=== PATIENT | female | born 1995 | race Caucasian/White ===

== ENCOUNTER 2017-06-11 17:18 | Emergency (ER) | payer OTHER, SELFPAY ==
[2017-06-11 17:19] VITALS: BP 146/78; PULSE 87; RESP 14; TEMP 36.8; O2SAT 98; BMI 50.8
--- NOTE | 2017-06-11 17:59 | CT_ITS ---
STUDY: CT ABDOMEN AND PELVIS WITHOUT CONTRAST REASON FOR EXAM: Female, 21 years old. Back pain. Leukemia. RADIATION DOSAGE (If Supplied By Facility): CTDIvol = ( 24.03 ) mGy, DLP = ( 1278.72 ) mGycm TECHNIQUE: Transaxial images were obtained from the dome of the diaphragm to the symphysis pubis without oral contrast, and without intravenous contrast. Sagittal and coronal images were reconstructed. Individualized dose optimization techniques were used for this CT. COMPARISON: None. FINDINGS: The visualized lung bases are unremarkable. Granuloma is seen in the right lung base. The visualized portions of the heart are within normal limits. There is decreased attenuation of the liver consistent with steatosis. There is hepatomegaly. Normal gallbladder and extrahepatic biliary system. Normal spleen. Normal pancreas. Normal bilateral adrenal glands. Normal right kidney. Left kidney has a 3 mm nonobstructing stone of the mid left kidney. Evaluation of the GI tract is limited by absence of oral contrast. Cannot exclude stomach wall thickening. No dilated loops of bowel or evidence for obstruction. Cannot exclude segmental thickening of the marcus of the small or large bowel. Cannot exclude enteritis or colitis. Moderate diffuse fecal retention. Appendix within normal limits. Normal abdominal aorta. Normal inferior vena cava. Normal retroperitoneum. Normal urinary bladder. Normal visualized uterus. There is a small umbilical hernia containing fat. Normal osseous structures. CT/Abdomen/Pelvis without Cont IMPRESSION: No definite acute abnormality. 3 mm nonobstructing stone of the mid left kidney. Fatty liver with hepatomegaly. Electronically Signed: Tae Mancia MD at 19:15 EDT , Service support ,
--- NOTE | 2017-06-11 18:01 | ED.DCSUM_ITS ---
- ER Visit Summary Date of Service: 06/11/17 Chief Complaint: Back pain History of Present Illness: The patient is a 21 F nontraumatic left flank pain starting yesterday after going to the restroom. Pain goes into the left groin. No nausea or vomiting. Normal bowel movements. No fevers. Denies urinary symptoms. Use Tylenol yesterday. No previous similar symptoms in the past. Last menstrual period was 3 days ago. No history of gastric ulcers or kidney injuries. States pain does move with movement also comes and goes. No other complaints. Physical Examination: General: Alert and oriented ?3, no acute distress. BMI 50 HEENT: Normocephalic, atraumatic. Moist mucosa membranes Neck: supple, nontender. Cardiovascular: Regular rate and rhythm, no murmurs Respiratory: Normal breath sounds, symmetric, no distress Abdomen: Soft, nontender, nondistended Back: Left CVA tenderness, no rash Extremities: Nontender, no edema, pulses intact ?4 Neuro: no focal neurological deficits. Test Results: HCG negative. UA leukocytes, blood, WBCs 5-10, 10-25 squamous cells. Urine culture sent. Flank CT: No obstructive uropathy, 3 mm renal stone on the left. Emergency Department Course and Treatment: Patient presents today flank pain radiating to the groin. She is in no acute distress. She is given Toradol IM. Urine noticed blood white count and squamous cells. Thank CT notes no obstructive uropathy there is a 3 mm renal stone. Discussed with patient finding. Patient denies any history of urinary tract infections having symptoms. Urine culture was sent, she is started on Keflex for possible pain from UTI. She is given NSAIDs to continue. She will follow-up with her PCP. All questions were answered. Treatment Plan: [] Disposition: Discharge Impression: 1. Left flank pain 2. Urinary tract infection This note was generated with Eponym dictation software. It may contain incorrect words, spelling, and punctuation that were not noted in review of the chart prior to signing ED Disposition - Plan for ED Patient: Disposition: Home or Assisted Living Chief Complaint: Back Diagnosis: Acute flank pain, Urinary tract infection Instructions: ED Flank Pain Uncertain Cause, Urinary Tract Infections in Women Prescriptions: Cephalexin [Keflex] 500 mg PO Q12 #14 capsule Naproxen [Naprosyn] 500 mg PO BID PRN #20 tablet Referrals: NOT,DEFINED [NON-STAFF] - Additional Instructions: Call your doctor for follow-up in 5-7 days.
[2017-06-11] MEDS: Ketorolac 60 MG/2 ML Vial IM (18:11)
[2017-06-11 18:44] LABS: Mucous, Urine 0 SEEN /hpf (<or=2+); Red Blood Cells-Urine 0 SEEN /hpf (0-5)
[2017-06-11 18:46] LABS: Color, Urine Yellow (Yellow); Glucose, Dipstick Normal (Normal); Ketone-Dipstick Negative (Negative); Leukocyte Esterase-Dipstick 100 /ul (Negative); Nitrite-Dipstick Negative (Negative); Occult Blood-Urine 10 /ul (Negative); Protein-Dipstick 15 mg/dl (Negative); Urine Bilirubin Dipstick Negative (Negative); Urine Clarity Sl. Cloudy (Clear); Urine Urobilinogen Normal (Normal)
[2017-06-11 18:48] LABS: Internal QC Validated? YES +Cl - CLEAR BKGD
[2017-06-11 18:49] LABS: Pregnancy, Urine Negative Negative
[2017-06-11 18:52] LABS: Bacteria 2+ /hpf (None Seen); Squamous Epithelial Cells - UA 10-25 SEEN /hpf (5-10); White Blood Cells 5-10 SEEN /hpf (0-5)
[2017-06-11] MEDS: Cephalexin 250 MG Capsule 500 MG PO (20:13)
[2017-06-11 20:33] VITALS: BP 122/78; PULSE 87; RESP 16; O2SAT 97
== END 2017-06-11 20:35 | disposition home or self-care (01) ==
PROVIDERS: Emergency Provider Emergency Medicine
DX: N39.0 Urinary tract infection, site not specified (principal); R10.9 Unspecified abdominal pain; E66.9 Obesity, unspecified; Z68.43 Body mass index [BMI] 50.0-59.9, adult; N20.0 Calculus of kidney
CPT/HCPCS: 74176; 81001; 81025; 87086; 87088; 96372; 99282

== ENCOUNTER → 2017-07-06 11:38 | Outpatient (CLI) | payer OTHER, SELFPAY ==
[2017-07-06 13:18] LABS: Hematocrit 41.5 % (37-47); Hemoglobin 13.2 g/dl (12.0-15.0); Mean Corp Hgb Conc 31.8 g/gl (32-36); Mean Corpuscular Hgb 25.9 pg (27.0-32.0); Mean Corpuscular Volume 81.4 fL (81-99); Mean Platelet Vol. 9.6 fl (6.2-12.0); Platelet Count 352 K/mm3 (150-450); RBC Distribution Width CV 14.1 % (11.6-14.6); RBC Distribution Width SD 42.1 fl (35.1-43.9); Scan Indicated on CBC? Y/N NO; White Blood Count 8.8 K/mm3 (4.4-11.0)
[2017-07-06 13:38] LABS: Anion Gap 8 (5-15); BUN 16 mg/dL (7-18); BUN/Creat Ratio 18.2 RATIO (10-20); Calcium,Total 8.8 mg/dL (8.5-10.1); Chloride 106 mmol/L (98-107); Cholesterol 174 mg/dL (200); Creatinine, Serum 0.88 mg/dL (0.55-1.02); EST Glomerular Filtration Rate 84 mL/min (>60); Est Glom Filt Rate - Afr Amer 102 mL/min (>60); Glucose 79 mg/dL (74-106); High Density Lipoprotein 35 mg/dL; Potassium 4.1 mmol/L (3.5-5.1); Sodium Level 137 mmol/L (136-145); Thyroid Stim Hormone (TSH) 1.37 uIU/mL (0.358-3.74); Triglycerides 169 mg/dL; Very Low Density Lipoprotein 34 mg/dL (5-40)
== END ==
PROVIDERS: Family Provider Family Medicine; PCP Family Medicine; Visit Provider Family Medicine
DX: Z00.00 Encounter for general adult medical examination without abnormal findings (principal); E66.9 Obesity, unspecified; Z85.6 Personal history of leukemia
CPT/HCPCS: 36415; 80048; 80061; 84443; 85027

== ENCOUNTER → 2017-09-05 09:14 | Outpatient (CLI) | payer OTHER, SELFPAY ==
[2017-09-05 10:09] LABS: Hematocrit 39.3 % (37-47); Mean Corp Hgb Conc 33.1 g/gl (32-36); Mean Corpuscular Volume 81.5 fL (81-99); Mean Platelet Vol. 10.1 fl (6.2-12.0); Platelet Count 265 K/mm3 (150-450); RBC Distribution Width CV 14.6 % (11.6-14.6); RBC Distribution Width SD 42.8 fl (35.1-43.9); Red Blood Count 4.82 M/mm3 (4.2-5.4); White Blood Count 7.3 K/mm3 (4.4-11.0)
[2017-09-05 10:12] LABS: Scan Indicated on CBC? Y/N NO
[2017-09-05 10:21] LABS: Hemoglobin A1c 5.2 % (4.2-6.3)
[2017-09-05 10:52] LABS: Glucose 75GTT - Fasting 86 mg/dL (70-99)
[2017-09-05 11:07] LABS: Glucose 75GTT - 30 minutes 131 mg/dL (100-160)
[2017-09-05 11:13] LABS: ALB/GLOB Ratio 0.9 RATIO (0.9-2.4); AST(SGOT) 17 U/L (15-37); Alanine Aminotransfer ALT/SGPT 23 U/L (13-56); Albumin, Serum 3.6 g/dL (3.2-5.0); Alkaline Phosphatase 99 U/L (45-117); Anion Gap 8 (5-15); BUN 14 mg/dL (7-18); BUN/Creat Ratio 15.7 RATIO (10-20); Calcium,Total 8.6 mg/dL (8.5-10.1); Chloride 107 mmol/L (98-107); Creatinine, Serum 0.89 mg/dL (0.55-1.02); EST Glomerular Filtration Rate 83 mL/min (>60); Est Glom Filt Rate - Afr Amer 100 mL/min (>60); Estradiol 124.2 pg/mL; Follicle Stimulating Hormone 5.9 mIU/mL; Free T3 3.1 pg/mL (2.18-3.98); Globulin 3.9 g/dL (2.2-4.2); Glucose 82 mg/dL (74-106); Potassium 3.8 mmol/L (3.5-5.1); Prolactin 9.5 ng/mL; Protein, Total 7.5 g/dL (6.4-8.2); Sodium Level 140 mmol/L (136-145); T4 Free Direct 0.98 ng/dL (0.76-1.46); Thyroid Stim Hormone (TSH) 0.65 uIU/mL (0.358-3.74)
[2017-09-05 11:50] LABS: Glucose 75GTT - 60 minutes 138 mg/dL (100-160)
[2017-09-05 12:40] LABS: Glucose 75GTT - 120 minutes 117 mg/dL (70-140)
[2017-09-06 05:07] LABS: DHEA Sulfate 136.2 ug/dL (110.0-431.7)
[2017-09-06 08:17] LABS: Insulin 75GTT - 120 min 184.1 mU/L (Not Estab.)
[2017-09-06 08:22] LABS: Insulin 75GTT - 30 MIN 228.4 mU/L (Not Estab.)
[2017-09-06 08:24] LABS: Insulin 75GTT - Fasting 29.3 mU/L (2.6-37.6)
[2017-09-06 08:31] LABS: Progesterone Level 0.36 ng/mL (See Comment); Vitamin D,25 Hydroxy 14.1 ng/mL (29.95-100.01)
[2017-09-08 14:23] LABS: 17-Hydroxyprogesterone 46 ng/dL (.)
== END ==
PROVIDERS: Family Provider Family Medicine; PCP Family Medicine; Visit Provider Obstetrics & Gynecology
DX: E28.1 Androgen excess (principal); E28.2 Polycystic ovarian syndrome; Z68.42 Body mass index [BMI] 45.0-49.9, adult
CPT/HCPCS: 36415; 80053; 82306; 82627; 82670; 82951; 82952; 83001; 83036; 83498; 83525; 84144; 84146; 84270; 84403; 84439; 84443; 84481; 85027; 82626

== ENCOUNTER → 2019-01-18 13:30 | Outpatient (CLI) | payer OTHER, SELFPAY ==
[2019-01-18 16:12] LABS: Chlamydia Trachomatis by PCR Negative (Negative); Neisserai gonorrhoeae by PCR Negative (Negative); Probe Check PASS; Sample Adequacy Control PASS; Specimen Processing Control PASS
[2019-01-23 15:32] LABS: HPV APTIMA, High Risk Negative (Negative); HPV Reflexed? YES, CHARGE PATIENT
== END ==
PROVIDERS: Family Provider Family Medicine; PCP Family Medicine; Referring Provider Obstetrics & Gynecology; Visit Provider Obstetrics & Gynecology
DX: Z32.01 Encounter for pregnancy test, result positive (principal); Z11.3 Encounter for screening for infections with a predominantly sexual mode of transmission; Z12.4 Encounter for screening for malignant neoplasm of cervix
CPT/HCPCS: 87491; 87591; 87624; 88175; G0145

== ENCOUNTER → 2019-02-15 11:28 | Outpatient (CLI) | payer OTHER, SELFPAY ==
[2019-02-15 13:36] LABS: Color, Urine Straw (Yellow); Glucose, Dipstick Normal (Normal); Ketone-Dipstick 50 mg/dl (Negative); Leukocyte Esterase-Dipstick 25 /ul (Negative); Nitrite-Dipstick Negative (Negative); Occult Blood-Urine 10 /ul (Negative); Protein-Dipstick 15 mg/dl (Negative); Specific Gravity, Urine 1.025 (1.002-1.030); Urine Bilirubin Dipstick Negative (Negative); Urine Clarity Cloudy (Clear); Urine Urobilinogen Normal (Normal)
[2019-02-15 13:39] LABS: Absolute Lymphocyte Count 1.58 X10^3/uL (0.83-4.51); Absolute Neutrophil Count 5.6 X10^3/uL (2.0-7.7); Basophil# 0.02 X10^3/uL; Basophil% 0.3 % (0-1); Eosinophils% 1.3 % (0-5); Hematocrit 37.7 % (37-47); Hemoglobin 12.2 g/dL (12.0-15.0); Lymphocyte # 1.58 X10^3/ul (4.0); Lymphocyte % 20.5 % (19-41); Mean Corp Hgb Conc 32.4 g/dL (32-36); Mean Corpuscular Hgb 26.3 pg (27.0-32.0); Mean Corpuscular Volume 81.3 fL (81-99); Mean Platelet Vol. 10.1 fl (6.2-12.0); Monocyte# 0.35 X10^3/uL; Monocyte% 4.5 % (0-10); NRBC Flagged by Analyzer 0 % (0-5); Neutrophil # 5.62 X10^3/uL (2.7-7.7); Neutrophil % 72.9 % (47-70); Platelet Count 245 K/mm3 (150-450); RBC Distribution Width CV 14.7 % (11.6-14.6); RBC Distribution Width SD 43.2 fl (35.1-43.9); Red Blood Count 4.64 M/mm3 (4.2-5.4); White Blood Count 7.7 K/mm3 (4.4-11.0)
[2019-02-15 13:54] LABS: Glucose Challenge Gest 1H 50g 138 mg/dL (70-140); Thyroid Stim Hormone (TSH) 0.25 uIU/mL (0.358-3.74)
[2019-02-15 13:57] LABS: Amphetamine Urine VISTA NEGATIVE (<1000 ng/mL); Barbiturate Urine VISTA NEGATIVE (< 200 ng/mL); Benzodiazepine Urine VISTA NEGATIVE (< 200 ng/mL); Cocaine Urine VISTA NEGATIVE (< 300 ng/mL); Ecstacy Urine VISTA NEGATIVE (< 500 ng/mL); Methadone Urine VISTA NEGATIVE (< 300 ng/mL); PCP Urine VISTA NEGATIVE (< 25 ng/mL); THC Urine VISTA NEGATIVE (< 50 ng/mL); Vista UDS pH Range 7
[2019-02-15 14:44] LABS: HIV - WCH Non-Reactive (Nonreactive); Hepatitis B Surface Antigen Non-Reactive (Nonreactive); Hepatitis C Antibody Non-Reactive (Nonreactive); Rubella IgG 39.3 IU/mL; Vitamin D,25 Hydroxy 15.2 ng/mL (29.95-100.01)
[2019-02-16 19:55] LABS: V-Zoster IgG (Immunity) 232 index (Immune >165)
[2019-02-18 14:29] LABS: T4 Free Direct 0.95 ng/dL (0.76-1.46)
[2019-02-21 00:56] LABS: Prenatal RPR NONREACTIVE (NONREACTIVE)
== END ==
PROVIDERS: Visit Provider Obstetrics & Gynecology
DX: O99.810 Abnormal glucose complicating pregnancy (principal); Z3A.00 Weeks of gestation of pregnancy not specified
CPT/HCPCS: 36415; 80307; 81002; 82306; 82950; 84439; 84443; 85025; 86703; 86762; 86787; 86803; 87340

== ENCOUNTER → 2019-06-14 14:49 | Outpatient (CLI) | payer OTHER, SELFPAY ==
[2019-06-14 16:59] LABS: Hematocrit 37.6 % (37-47); Hemoglobin 11.8 g/dL (12.0-15.0); Mean Corp Hgb Conc 31.4 g/dL (32-36); Mean Platelet Vol. 10.3 fl (6.2-12.0); Platelet Count 245 K/mm3 (150-450); RBC Distribution Width SD 41.6 fl (35.1-43.9); Red Blood Count 4.53 M/mm3 (4.2-5.4); White Blood Count 11.1 K/mm3 (4.4-11.0)
[2019-06-14 17:09] LABS: Glucose Challenge Gest 1H 50g 98 mg/dL (70-140)
[2019-06-14 17:46] LABS: Vitamin D,25 Hydroxy 23.7 ng/mL
== END ==
PROVIDERS: Referring Provider Obstetrics & Gynecology; Visit Provider Obstetrics & Gynecology
DX: Z34.83 Encounter for supervision of other normal pregnancy, third trimester (principal); E55.9 Vitamin D deficiency, unspecified
CPT/HCPCS: 82306; 82950; 85027

== ENCOUNTER → 2019-07-12 15:17 | Outpatient (CLI) | payer OTHER, SELFPAY ==
[2019-07-12 15:36] LABS: Hematocrit 38.7 % (37-47); Hemoglobin 12.3 g/dL (12.0-15.0); Mean Corp Hgb Conc 31.8 g/dL (32-36); Mean Corpuscular Hgb 26.3 pg (27.0-32.0); Mean Corpuscular Volume 82.7 fL (81-99); Platelet Count 228 K/mm3 (150-450); RBC Distribution Width SD 44.9 fl (35.1-43.9); Red Blood Count 4.68 M/mm3 (4.2-5.4); White Blood Count 11.6 K/mm3 (4.4-11.0)
[2019-07-12 15:56] LABS: Protein, Urine (Random) 28.4 mg/dL (<11.9)
[2019-07-12 16:34] LABS: ALB/GLOB Ratio 0.6 RATIO (0.9-2.4); AST(SGOT) 14 U/L (15-37); Alanine Aminotransfer ALT/SGPT 17 U/L (13-56); Albumin, Serum 2.7 g/dL (3.2-5.0); Alkaline Phosphatase 140 U/L (45-117); Anion Gap 9 (5-15); BUN 8 mg/dL (7-18); BUN/Creat Ratio 10.9 RATIO (10-20); Calcium,Total 8.8 mg/dL (8.5-10.1); Chloride 104 mmol/L (98-107); Creatinine, Serum 0.74 mg/dL (0.55-1.02); EST Glomerular Filtration Rate 102 mL/min (>60); Est Glom Filt Rate - Afr Amer 123 mL/min (>60); Globulin 4.4 g/dL (2.2-4.2); Glucose 71 mg/dL (74-106); Potassium 3.8 mmol/L (3.5-5.1); Protein, Total 7.1 g/dL (6.4-8.2); Sodium Level 136 mmol/L (136-145); Uric Acid 4.8 mg/dL (2.6-6.0)
== END ==
PROVIDERS: Referring Provider Obstetrics & Gynecology; Visit Provider Obstetrics & Gynecology
DX: O13.3 Gestational [pregnancy-induced] hypertension without significant proteinuria, third trimester (principal); Z3A.00 Weeks of gestation of pregnancy not specified
CPT/HCPCS: 36415; 80053; 82570; 84156; 84550; 85027

== ENCOUNTER → 2019-08-14 | Outpatient (CLI) | payer OTHER, SELFPAY | END | disposition home or self-care (01) | LOC: LABSPEC 08-21 09:21 | PROVIDERS: PCP Family Medicine; Visit Provider Obstetrics & Gynecology | DX: Z36.85 Encounter for antenatal screening for Streptococcus B (principal) | CPT/HCPCS: 87081 ==

== ENCOUNTER 2019-08-28 09:50 | Inpatient (IN) | payer OTHER, SELFPAY ==
[2019-08-28] VITALS (14 sets, daily range): BP systolic 107–124; BP diastolic 46–72; PULSE 72–97; RESP 12–18; TEMP 36.6–37; O2SAT 97–99; BMI 52.0
[2019-08-28] MEDS: Lactated Ringers 1,000 ML 999 ML IV (10:20)
[2019-08-28 10:36] LABS: Absolute Neutrophil Count 8.6 X10^3/uL (2.0-7.7); Basophil# 0.02 X10^3/uL; Basophil% 0.2 % (0-1); Eosinophil# 0.06 X10^3/uL; Eosinophils% 0.6 % (0-5); Hemoglobin 12.1 g/dL (12.0-15.0); Lymphocyte % 14.2 % (19-41); Mean Corp Hgb Conc 31.8 g/dL (32-36); Mean Corpuscular Hgb 26.7 pg (27.0-32.0); Mean Corpuscular Volume 83.7 fL (81-99); Mean Platelet Vol. 11.6 fl (6.2-12.0); Monocyte# 0.39 X10^3/uL; Monocyte% 3.7 % (0-10); NRBC Flagged by Analyzer 0 % (0-5); Neutrophil # 8.56 X10^3/uL (2.7-7.7); Neutrophil % 80.7 % (47-70); POSITIVE COUNT YES; Platelet Count 174 K/mm3 (150-450); RBC Distribution Width CV 15.8 % (11.6-14.6); RBC Distribution Width SD 47.5 fl (35.1-43.9); Red Blood Count 4.54 M/mm3 (4.2-5.4); White Blood Count 10.6 K/mm3 (4.4-11.0)
[2019-08-28 10:42] LABS: Differential Indicated SCAN CRITERIA MET
--- NOTE | 2019-08-28 10:49 | NURSING ---
Admission/ Pre Op Vital signs 114/72 107 14 99.8 temporal 98%
[2019-08-28] MEDS: Acetaminophen 500 MG Tablet 1000 MG PO ×3 (11:05→23:55)
[2019-08-28] MEDS: Lactated Ringers 1,000 ML 150 ML IV (11:16)
[2019-08-28] MEDS: Sodium Citrate/Citric Acid 30 ML UDC PO (12:04)
--- NOTE | 2019-08-28 12:11 | HP.PCM_ITS ---
- Problem List (1) 39 weeks gestation of Status: Acute History Date of Admission: 08/28/19 Final BUDDY: 09/04/19 Final BUDDY Source: US <20 weeks Gestational age: 39 Weeks and 0 Days History of this : This is a 23 year-old, G [3], P [1011], at 39 weeks gestational age. Medical History: Medical History (Last Updated 08/28/19 @ 12:[address] 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 Kay Bolivar MD) Hx of breast reduction, elective Z98.890 Allergies No Known Allergies Allergy (Verified 06/11/17 17:18) Home Medications: Home Medications Pnv No.95/Ferrous Fum/Folic AC [ Formula Tablet] 1 ea PO DAILY 08/28/19 Ibuprofen [Motrin] 600 mg PO TID PRN #30 tab 08/29/19 Oxycodone [Oxyir] 1 tab PO Q6H PRN PRN 7 Days #20 tab 08/29/19 Senna/Docusate Sodium [Senokot-S] 1 - 2 tab PO DAILY PRN #60 tab 08/29/19 Smoking Status: Never smoker Alcohol: None Number of Fetus(es): 1 NST - FHR Rate Baby A Baseline: 140 bpm History Past Pregnancies: Past Pregnancies Delivery Date Name GA/ Weeks Outcome Route Wt Infant Sex Labor Length Anesthesia Delivery Location Provider FOB Labs: Mom's Problem List Problem Status Onset Code 39 weeks gestation of Acute Z3A.39 Mom's Labs & Results 08/28/19 08/28/19 10:15 10:15 WBC 10.6 RBC 4.54 Hgb 12.1 Hct 38.0 MCV 83.7 MCH 26.7 L MCHC 31.8 L RDW Std Deviation 47.5 H RDW Coeff of Ximena 15.8 H Plt Count 174 MPV 11.6 Immature Gran % (Auto) 0.600 Neut % (Auto) 80.7 H Lymph % (Auto) 14.2 L [place] % (Auto) 3.7 Eos % (Auto) 0.6 Baso % (Auto) 0.2 Absolute Neuts (auto) 8.6 H Absolute Lymphs (auto) 1.50 Nucleated RBC % 0 Blood Type A POSITIVE Antibody Screen NEGATIVE Course Did the patient receive Yes care? Labs Blood Type: A RH: POSITIVE RPR/VDRL/Syphilis Nonreactive Rubella status Immune HbSAg Negative Date Done: 02/15/19 Chlamydia Negative Gonorrhea Negative HIV/AIDS Non-Reactive Group B Strep: Negative Current Obstetrical History Gestational Diabetes No Incompetent Cervix No Infertility No IUGR No Macrosomia No Hypertension/Pre-eclampsia No Placenta Previa/Abruption No PTL/PROM No Uterine anomaly No Oligohydramnios No Polyhydramnios No Multiple gestation No Past Medical History Asthma No Diabetes No Hypertension No Heart disease No Mitral valve prolapse No Neurologic/Seizure disorder/ No Migraines Kidney disease No Liver disease No Varicosities No Clotting disorders/Hx of DVT No Thyroid Dysfunction No Other medical diseases No Psychiatric disorders No Major trauma No Abnormal PAP smear No Sleep apnea No Mammogram in the last 2 years No Enter DETAILS of medical Hx CA 1yrs old history Social History Marital Status: Alleged father Jeramy Hx Smoking No Smoking Status Never smoker Expected Delivery Method: Scheduled Section Number of Visits: 11 Physical Exam Vitals: AVSS General: Alert, Oriented x3, Cooperative, No apparent distress HEENT: Atraumatic, Normocephalic Cardiovascular: Regular rate, Regular Rhythm Lungs: Clear to auscultation, Normal air movement Abdomen: Soft, Non Tender, Non-Distended, Gravid Neurological: Neuro grossly intact Estimated gestational size: Appropriate for gestational size Presentation: Cephalic Assessment/Plan All Active Problems (Last Updated 08/28/19 @ 12:[address] Kay Bolivar MD) 39 weeks gestation of (Acute) This is a 23 year-old, G [3], P [1011], at 39 weeks gestational age presents for scheduled repeat section Procedure Criteria Procedure Type: Elective COVID Risk Discussion: The surgeon/proceduralist and patient have discussed in detail the risk of exposure to and/or potential harm posed by the COVID-19 virus with having a surgery/procedure at this time versus the risk of delaying the surgery/procedure. It is not possible to know either the risk of delaying the surgery or procedure or chance of getting an infection with perfect accuracy, b ut a joint decision was made between the patient and the surgeon/proceduralist to proceed at this time with the scheduled surgery/procedure as indicated on the consent form.
--- NOTE | 2019-08-28 13:38 | PCM.OPRPT ---
Problem List (1) 39 weeks gestation of Status: Acute Report of Operation Surgery/Procedure Performed:: 1. Repeat low transverse section. 2. Lysis of adhesions Delivery Classification: Scheduled Final BUDDY: 09/04/19 Final BUDDY Source: US <20 weeks Gestational age: 39 Weeks and 2 Days it service delivery manager: Khadijah Plascencia Type of Anesthesia:: Spinal Date of Procedure: 08/28/19 Pre-Operative Diagnosis: 1. 39 weeks gestational age. 2. Prior section Post-Operative Diagnosis: Same Indications: 23-year-old 3 para 1-0-1-1 admitted at 39 weeks gestational age for scheduled repeat section. Procedural risks, benefits, indications and alternatives were reviewed prior to the procedure and the patient desired to proceed. Indications for : Repeat Elective Description of Procedure: The patient was taken to the operating room and spinal analgesia was administered. She is placed in a dorsal supine position with left lateral tilt. The perineum and abdomen were prepped and draped in sterile fashion. And the spinal was found to be adequate. A Pfannenstiel incision was made using a scalpel and brought down to incise the subcutaneous tissue and rectus fascia at the midline. Subcutaneous tissue was bluntly dissected off the fascia laterally. The fascial incision was dissected laterally and cephalad using curved Sauceda scissors. The superior leaflet of the rectus fascia was grasped using Margarette clamps and bluntly dissected and sharply dissected from the underlying rectus muscle. In a similar fashion the inferior rectus fascia was dissected from the underlying muscle. The rectus muscles were bluntly at the midline. The peritoneum was identified and entered [sharply]. A large omental adhesition was present cloaking the uterus was adherent to the anterior abdominal wall peritoneum. The adhesion was sharply and bluntly dissected with hemostasis obtained using suture ligation and and electrocoagulation. The bladder blade was placed into the abdomen and the vesicouterine peritoneal fold identified. The fold was incised and a bladder flap created. Bladder blade was then repositioned to the abdomen. A low transverse hysterotomy was made using the [Metzenbaum scissors] to level of the membranes. The hysterotomy was extended bluntly cephalad and caudad. The membranes were then ruptured revealing clear fluid. The head was elevated and brought to the level of the hysterotomy and the infant delivered revealing vigorous [male] infant. The cord was doubly clamped and cut after 30 seconds. The was passed to awaiting [nursery personnel]. The placenta was [expressed] from the uterus and appeared intact on inspection. The uterus was cleared of debris. The hysterotomy was then repaired using 0 Vicryl running lock suture. A second imbricating layer was also placed for additional hemostasis. The bladder blade was removed. The anterior cul-de-sac was cleared of debris. The peritoneum and rectus muscles were reapproximated using 2-0 Vicryl running suture. The rectus fascia was closed using 0 Vicryl running suture. The subcutaneous tissue was sponge irrigated and small capillary bleeding controlled using the Bovie device. The subcutaneous tissue was reapproximated using 2-0 Vicryl. The skin was closed using 4-0 Monocryl subcuticularly by the TRANSPORTATION DIRECTOR under my supervision. A Mepilex occlusive dressing was placed over the incision. The fundus was firm. The patient was then transferred to the recovery room without complication. Sponge, instrument, and needle counts were correct ?2. Amniotic Membrane Rupture Type: Artificial Amniotic Fluid Description: Clear Placenta Disposition: [facility] Drain: Rivera to straight drain Fluids Replaced: 1400 ml Cord Entanglement: None Nuchal Cord Compression: Without compression Cord Vessel Description: 3 Vessels Esitmated Blood Loss (ml): 950 ml Infant Gender: Male (1 minute): 9 (5 minute): 9 Delayed cord clamping: Yes Antibiotic Given: Ancef 3 grams IV x1 Pt instructed on risks of surgery: Bleeding, Anesthesia Risks, Infection, Failure Rate of 1 to 2%, Injury to surrounding structure(s) including bowel and bladder Complications: None - Admit VTE Documentation VTE Present on Admission: No VTE Mechan Device Prophylaxis: SCD's VTE Pharm Prophylaxis ordered?: Yes
[2019-08-28] MEDS: Oxytocin 30 units/NS 500 ml 30 UNITS/500 ML IV.SOLN 167 UNITS IV (13:55)
[2019-08-28] MEDS: Lactated Ringers 1,000 ML 100 ML IV (17:08)
[2019-08-28] MEDS: HYDROmorphone 1 MG/ML Syringe IV (17:17)
[2019-08-28] MEDS: Ketorolac 30 MG/ML Syringe IV ×2 (18:33→23:55)
[2019-08-28] MEDS: Cefazolin 1 GM/50 ML BAG IV (20:06)
[2019-08-28] MEDS: Heparin Injection (Vial) 5,000 UNIT/ML VIAL 5000 UNIT SC (21:57)
[2019-08-28] MEDS: oxyCODONE 5 MG Tablet PO (23:02)
[2019-08-28] MEDS: 0.9% Saline Lock 10 ML Syringe IV (23:55)
[2019-08-29] MEDS: oxyCODONE 5 MG Tablet PO ×4 (03:11→20:10)
[2019-08-29 03:12] VITALS: BP 105/61; PULSE 81; RESP 16; TEMP 36.6
[2019-08-29] MEDS: 0.9% Saline Lock 10 ML Syringe IV ×4 (03:57→12:03)
[2019-08-29] MEDS: Cefazolin 1 GM/50 ML BAG IV (03:57)
[2019-08-29] MEDS: Heparin Injection (Vial) 5,000 UNIT/ML VIAL 5000 UNIT SC ×3 (06:04→22:03)
[2019-08-29] MEDS: Ketorolac 30 MG/ML Syringe IV ×2 (06:04→12:02)
[2019-08-29] MEDS: Acetaminophen 500 MG Tablet 1000 MG PO ×4 (06:05→23:56)
[2019-08-29 06:17] LABS: Hematocrit 36.7 % (37-47); Hemoglobin 11.6 g/dL (12.0-15.0); Mean Corp Hgb Conc 31.6 g/dL (32-36); Mean Corpuscular Volume 85.5 fL (81-99); Mean Platelet Vol. 10.5 fl (6.2-12.0); Platelet Count 175 K/mm3 (150-450); RBC Distribution Width CV 15.9 % (11.6-14.6); RBC Distribution Width SD 48.7 fl (35.1-43.9); Red Blood Count 4.29 M/mm3 (4.2-5.4); White Blood Count 10.5 K/mm3 (4.4-11.0)
[2019-08-29 08:15] VITALS: BP 103/56; PULSE 76; RESP 14; TEMP 36.2
[2019-08-29] MEDS: Senna/Docusate Sodium 1 Tablet PO (09:18)
--- NOTE | 2019-08-29 10:25 | PCM.PN.OB ---
Patient Problems: Active and Suspected Problems (Last Updated 08/28/19 @ 12:[address] Kay Bolivar MD) 39 weeks gestation of (Acute) Subjective: Bethanie reports painfulness overnight, but now 2-3/10 with pain medication. No flatus yet. Tolerates PO without nausea. Denies chest pain, shortness of breath, headache. Has been out of bed. She is bottlefeeding, reports she doesn't have any milk and didn't have any last time. Objective: AVSS - Physical Exam Vitals/I&O's: Vital Signs Temp Pulse Resp BP Pulse Ox 97.1 F L 76 14 103/56 L 98 08/29/19 08:15 08/29/19 08:15 08/29/19 08:15 08/29/19 08:15 08/28/19 18:00 Oxygen Delivery Method Room Air Weight: 120.8 kg Body Mass Index (BMI) 52.0 Intake and Output for Last 24 Hours 08/27/19 08/28/19 08/29/19 23:59 23:59 23:59 Intake Total 2615.73 / 2615.73 91.67 / 91.67 Output Total 725 / 725 600 / 600 Balance 1890.73 / 1890.73 -508.33 / -508.33 General: Alert, Oriented x3, Cooperative, No apparent distress HEENT: Atraumatic, Normocephalic Lungs: Clear to auscultation, Normal air movement Cardiovascular: Regular rate, Regular Rhythm, Normal S1, Normal S2 Abdomen: Soft, Non Tender, Non-Distended, Obese, - - Fundus firm and nontender, incisional dressing c/d/i, lochia scant Extremities: No edema, No Calf Tenderness Neurological: Neuro grossly intact Psych/Mental Status: Normal Affect, Appropriate, Alert and oriented to time, place, person, mood and affect Laboratory Results 08/28/19 10:15: WBC 10.6, RBC 4.54, Hgb 12.1, Hct 38.0, MCV 83.7, MCH 26.7 L, MCHC 31.8 L, RDW Std Deviation 47.5 H, RDW Coeff of Ximena 15.8 H, Plt Count 174, MPV 11.6, Immature Gran % (Auto) 0.600, Neut % (Auto) 80.7 H, Lymph % (Auto) 14.2 L, [place] % (Auto) 3.7, Eos % (Auto) 0.6, Baso % (Auto) 0.2, Absolute Neuts (auto) 8.6 H, Absolute Lymphs (auto) 1.50, Nucleated RBC % 0 08/28/19 10:15: Blood Type A POSITIVE, Antibody Screen NEGATIVE 08/29/19 06:09: WBC 10.5, RBC 4.29, Hgb 11.6 L, Hct 36.7 L, MCV 85.5, MCH 27.0, MCHC 31.6 L, RDW Std Deviation 48.7 H, RDW Coeff of Ximena 15.9 H, Plt Count 175, MPV 10.5 Current Medications Acetaminophen (Tylenol) 1,000 mg PO Q6 [facility] Last Admin: 08/29/19 06:05 Dose: 1,000 mg Documented by: Bisacodyl (Dulcolax) 10 mg RECTAL UD PRN PRN Reason: If no BM Heparin Sodium (Porcine) (Heparin Na) 5,000 unit SC Q8 [facility] Last Admin: 08/29/19 06:04 Dose: 5,000 unit Documented by: Hydrocortisone (Hytone) 1 applic TOPICAL TID PRN PRN; Protocol PRN Reason: Discomfort Hydromorphone HCl (Dilaudid Inj) 0.5 - 1 mg IV Q3H PRN PRN PRN Reason: Pain Score 4-10/10 Stop: 08/29/19 13:59 Last Admin: 08/28/19 17:17 Dose: 1 mg Documented by: Naloxone HCl 4 mg/ Dextrose 504 mls @ 0 mls/hr IV .Q0M PRN; Protocol PRN Reason: To maintain Resp. rate >10 Ibuprofen (Motrin) 600 mg PO Q6 [facility] Ketorolac Tromethamine (Toradol (Bkc)) 30 mg IV Q6 [facility] Stop: 08/29/19 12:01 Last Admin: 08/29/19 06:04 Dose: 30 mg Documented by: Methylergonovine Maleate (Methergine) 0.2 mg IM X1 PRN PRN Reason: Uterine Atony Naloxone HCl (Narcan) 0.02 mg IV Q1M PRN PRN Reason: RR <10 and pt unresponsive Ondansetron HCl (Zofran) 4 mg IV Q4H PRN PRN PRN Reason: Nausea Oxycodone HCl (Oxyir) 5 - 10 mg PO Q4H PRN PRN PRN Reason: Pain Score 4-10/10 Last Admin: 08/29/19 09:17 Dose: 10 mg Documented by: Multivit/Folic Acid/Iron (Prenatabs Fa) 1 tablet PO DAILY@1200 [facility] Prochlorperazine Edisylate (Compazine Iv) 10 mg IV Q6H PRN PRN PRN Reason: NAUSEA Senna/Docusate Sodium (Senokot-S, Wendy-Colace) 1 - 2 tablet PO DAILY [facility] Last Admin: 08/29/19 09:18 Dose: 1 tablet Documented by: Simethicone (Mylicon) 80 mg PO PCHS PRN PRN Reason: Indigestion/stomach pain Sodium Chloride () 5 - 15 ml IV UD PRN PRN Reason: SALINE FLUSH Last Admin: 08/29/19 06:04 Dose: 10 ml Documented by: Medical Necessity - Tobacco Use Smoking Status: Never smoker Assessment/Plan All Active Problems (Last Updated 08/28/19 @ 12:[address] Kay Bolivar MD) 39 weeks gestation of (Acute) This is a 23 year-old, G [3], P [2012 PPD#2 s/p RLTCS doing well. -Rh positive -Routine postop care - education provided. Pt considering attempting. Bottlefeeding now.
[2019-08-29 11:55] VITALS: BP 110/63; PULSE 83; RESP 20; TEMP 36.8
[2019-08-29] MEDS: Prenatal Vits Tablet 1 TABLET PO (12:02)
[2019-08-29 16:37] VITALS: BP 109/70; PULSE 85; RESP 16; TEMP 36.9
[2019-08-29] MEDS: Ibuprofen 600 MG Tablet PO ×2 (18:32→23:57)
[2019-08-29 21:00] VITALS: BP 105/63; PULSE 78; RESP 18; TEMP 36.9; O2SAT 95
[2019-08-30] MEDS: oxyCODONE 5 MG Tablet PO ×3 (00:56→08:59)
[2019-08-30 02:45] VITALS: BP 107/66; PULSE 81; RESP 18; TEMP 36.8; O2SAT 96
[2019-08-30] MEDS: Acetaminophen 500 MG Tablet 1000 MG PO (06:20)
[2019-08-30] MEDS: Ibuprofen 600 MG Tablet PO (06:21)
[2019-08-30] MEDS: Heparin Injection (Vial) 5,000 UNIT/ML VIAL 5000 UNIT SC (06:25)
--- NOTE | 2019-08-30 07:04 | NURSING ---
Late entry for 0625: Pt. reports increased pain in incision area and asked this RN to assess site and bleeding. Lochia scant to small, u-1, midline, and silver mepilex clean/dry/intact with no redness or edema noted.
--- NOTE | 2019-08-30 07:40 | PN.OBGYN_ITS ---
Patient Problems: Active and Suspected Problems (Last Updated 08/28/19 @ 12:[address] Kay Bolivar MD) 39 weeks gestation of (Acute) Subjective: Tolerates PO. Passing flatus, had two bowel movements already. Denies heavy lochia. Pain improved with medication. She is out of bed and without complaint. Requests discharge to home today. Objective: AVSS - Physical Exam Vitals/I&O's: Vital Signs Temp Pulse Resp BP Pulse Ox 98.2 F 81 18 107/66 96 08/30/19 02:45 08/30/19 02:45 08/30/19 02:45 08/30/19 02:45 08/30/19 02:45 Oxygen Delivery Method Room Air Weight: 120.8 kg Body Mass Index (BMI) 52.0 Intake and Output for Last 24 Hours 08/28/19 08/29/19 08/30/19 23:59 23:59 23:59 Intake Total 2615.73 / 2615.73 91.67 / 91.67 Output Total 725 / 725 600 / 600 Balance 1890.73 / 1890.73 -508.33 / -508.33 General: Alert, Oriented x3, Cooperative, No apparent distress HEENT: Atraumatic, Normocephalic Lungs: Clear to auscultation, Normal air movement Cardiovascular: Regular rate, Regular Rhythm, Normal S1, Normal S2 Abdomen: Soft, Non Tender, Non-Distended, Obese, - - fundus firm and nontender, incisional dressing c/d/i Extremities: No edema, No Calf Tenderness Neurological: Neuro grossly intact Psych/Mental Status: Normal Affect, Appropriate, Alert and oriented to time, place, person, mood and affect Current Medications Acetaminophen (Tylenol) 1,000 mg PO Q6 [facility] Last Admin: 08/30/19 06:20 Dose: 1,000 mg Documented by: Bisacodyl (Dulcolax) 10 mg RECTAL UD PRN PRN Reason: If no BM Heparin Sodium (Porcine) (Heparin Na) 5,000 unit SC Q8 [facility] Last Admin: 08/30/19 06:25 Dose: 5,000 unit Documented by: Hydrocortisone (Hytone) 1 applic TOPICAL TID PRN PRN; Protocol PRN Reason: Discomfort Naloxone HCl 4 mg/ Dextrose 504 mls @ 0 mls/hr IV .Q0M PRN; Protocol PRN Reason: To maintain Resp. rate >10 Ibuprofen (Motrin) 600 mg PO Q6 [facility] Last Admin: 08/30/19 06:21 Dose: 600 mg Documented by: Methylergonovine Maleate (Methergine) 0.2 mg IM X1 PRN PRN Reason: Uterine Atony Naloxone HCl (Narcan) 0.02 mg IV Q1M PRN PRN Reason: RR <10 and pt unresponsive Ondansetron HCl (Zofran) 4 mg IV Q4H PRN PRN PRN Reason: Nausea Oxycodone HCl (Oxyir) 5 - 10 mg PO Q4H PRN PRN PRN Reason: Pain Score 4-10/10 Last Admin: 08/30/19 04:56 Dose: 10 mg Documented by: Multivit/Folic Acid/Iron (Prenatabs Fa) 1 tablet PO DAILY@1200 [facility] Last Admin: 08/29/19 12:02 Dose: 1 tablet Documented by: Prochlorperazine Edisylate (Compazine Iv) 10 mg IV Q6H PRN PRN PRN Reason: NAUSEA Senna/Docusate Sodium (Senokot-S, Wendy-Colace) 1 - 2 tablet PO DAILY [facility] Last Admin: 08/29/19 09:18 Dose: 1 tablet Documented by: Simethicone (Mylicon) 80 mg PO HS PRN PRN Reason: Indigestion/stomach pain Sodium Chloride () 5 - 15 ml IV UD PRN PRN Reason: SALINE FLUSH Last Admin: 08/29/19 12:03 Dose: 10 ml Documented by: Medical Necessity - Tobacco Use Smoking Status: Never smoker Assessment/Plan All Active Problems (Last Updated 08/28/19 @ 12:[address] Kay Bolivar MD) 39 weeks gestation of (Acute) This is a 23 year-old, G [3], P [2012 POD#2 s/p RLTCS doing well. -Rh positive -Routine postop care -d/c home today
--- NOTE | 2019-08-30 07:46 | DCINST_ITS ---
Discharge Diet: No Restrictions Discharge Activity: Return to Normal Activity, May Shower, - - No tub bath for 2 week May resume sexual activity in: 4-6 weeks Lifting Restrictions: 10-20lb Call your doctor if you observe: Fever of 101 or Higher, Inability to urinate, Inability to have a bowel movement, Using more than one pad per hour, Shortness of breath, Chest pain, Calf discomfort, Uncontrolled pain Suture Line Care: Avoid Pulling/Pushing Remove Dressing in (days):: 3 Cleanse incision/area with: Soap & Water Additional Instructions: If you experience any of the following, contact your healthcare provider. * Bleeding that soaks a pad every hour for 2 hours * Fever 100.4 or higher * Unrelieved incision or abdominal pain * Swelling, redness, discharge or bleeding from your incision or episiotomy site * Your incision begins to separate * Problems urinating (including inability to urinate or burning while urinating). * Visual changes * Severe headache * Flu-like symptoms * Pain or redness in one of both of your breasts * Pain, warmth, tenderness or swelling in your legs, especially the calf area * Frequent nausea and vomiting * Symptoms of depression or anxiety If you experience any of the following, call 911 or go to the nearest Emergency Room. * Chest pain * Problems breathing * Seizure activity * Partial or complete paralysis of a body part, slurred speech, weakness or drooping of the face, or a sudden inability to walk or hold your balance Allergies/Adverse Reactions: Allergies No Known Allergies Allergy (Verified 06/11/17 17:18) Medications to take at Discharge Pnv No.95/Ferrous Fum/Folic AC [ Formula Tablet] 1 ea PO DAILY 08/28/19 Ibuprofen [Motrin] 600 mg PO TID PRN #30 tab 08/29/19 Oxycodone [Oxyir] 1 tab PO Q6H PRN PRN 7 Days #20 tab 08/29/19 Senna/Docusate Sodium [Senokot-S] 1 - 2 tab PO DAILY PRN #60 tab 08/29/19 The following prescriptions were given: Ibuprofen [Motrin] 600 mg PO TID PRN #30 tab PRN Reason: pain Transmission Status: Received by [id number] Oxycodone [Oxyir] 1 tab PO Q6H PRN PRN 7 Days #20 tab PRN Reason: Pain Score 6-10/10 Transmission Status: Received by [id number] Senna/Docusate Sodium [Senokot-S] 1 - 2 tab PO DAILY PRN #60 tab PRN Reason: Constipation Transmission Status: Received by [facility] Follow-Up: Call to make an appointment with your doctor for an incision check in 1-2 weeks. You will also need a 6 week post- follow up appointment. Test results from this visit will be discussed in further detail at your follow- up appointment, if applicable. Please Follow Up With: Kay Burkett MD When: 1-2 weeks Primary Care Physician: Fan Moser MD [Primary Care Provider] -
[2019-08-30 08:45] VITALS: BP 109/61; PULSE 83; RESP 18; TEMP 37.1
[2019-08-30] MEDS: Senna/Docusate Sodium 1 Tablet PO (10:11)
== END 2019-08-30 11:20 | disposition home or self-care (01) | DRG 787 ==
PROVIDERS: Admitting Provider Obstetrics & Gynecology; PCP Family Medicine; Referring Provider Obstetrics & Gynecology; Visit Provider Obstetrics & Gynecology
PROC: 10D00Z1 Extraction of Products of Conception, Low, Open Approach (ICD-10-PCS; CPT 59514; principal; 2019-08-28 11:45)
DX: O34.211 Maternal care for low transverse scar from previous cesarean delivery (principal); O36.0930 Maternal care for other rhesus isoimmunization, third trimester, not applicable or unspecified; Z3A.39 39 weeks gestation of pregnancy; Z37.0 Single live birth; Z85.6 Personal history of leukemia; Z86.32 Personal history of gestational diabetes
CPT/HCPCS: 85025; 85027; 86850; 86900; 86901; 99218; J7120; A4216; G0378; J2405

== ENCOUNTER 2020-07-07 15:20 | Emergency (ER) | payer OTHER, SELFPAY ==
[2019-08-28 10:00] VITALS: BMI 52.0
[2020-07-07 15:21] VITALS: BP 139/91; PULSE 89; RESP 16; TEMP 36.4; O2SAT 100; BMI 54.6
--- NOTE | 2020-07-07 16:08 | EDS_ITS ---
HPI History of Present Illness Chief Complaint: Back Informant: patient Narrative Narrative: Patient is a 24-year-old female presenting with back pain. It is in her right lower back. Patient states she went to top golf last night. She started having mild pain in her right lower back after that. This morning she tried to sweet pickle maker her [id number] son and had worsening pain in the area. She states it radiates around her abdomen. Does not go down to her legs. She denies any bowel or bladder incontinence. She notes she has not had a bowel movement today she thought she might be constipated. She denies any urinary symptoms. She did have similar pain like this before when she had a UTI. She took Tylenol last night but nothing today. She does any fever or chills. She denies any nausea or vomiting. She states her last menstrual period was a little over a month ago. She had a negative home test today. She has any weakness of her legs. No other complaints at this time. [facility] Medical History Adopted Gestational diabetes mellitus Leukemia Home Medications PNV cmb#95-ferrous fumarate-FA 1 ea PO DAILY 08/28/19 [History Last Taken 08/27/19] ibuprofen 600 mg PO TID PRN #30 tab 08/29/19 [Rx Last Taken Unknown] sennosides-docusate sodium 1 - 2 tab PO DAILY PRN #60 tab 08/29/19 [Rx Last Taken Unknown] Allergy/AdvReac Type Severity Reaction Status Date / Time No Known Allergies Allergy Verified 07/07/20 15:23 Surgical History Hx of breast reduction, elective Social History Smoking Status: Never smoker ROS ROS ED Constitutional Constitutional ED: Reports frequent falls; Denies fever(s) Eyes Eyes: Denies change in vision or eye pain ENT ENT ED: Denies dental pain, mouth lesions or nasal trauma Cardiovascular Cardiovascular: Denies chest pain or syncope Respiratory/Chest Respiratory/Chest: Denies cough or dyspnea Gastrointestinal Gastrointestinal: Denies abdominal pain, diarrhea or nausea Genitourinary Genitourinary ED: Reports LMP (females 10-50) Details: Comment: (06/26/2020); Denies dysuria, hematuria or urinary frequency Musculoskeletal Musculoskeletal: Reports back pain; Denies arthralgias, myalgias or neck pain Integumentary Denies Abrasions or wounds Neurologic Neurologic: Denies headache(s), paresthesias or weakness Psychiatric Psychiatric: Denies anxiety or depression Hematologic/Lymphatic Hematologic/Lymphatic: Denies easy bleeding or easy bruising EXAM Physical Exam Const Vital Signs: 07/07/20 15:21 Temperature 97.6 F L Temperature Source Temporal Pulse Rate 89 Respiratory Rate 16 Blood Pressure 139/91 H Blood Pressure Mean 107 Pulse Ox 100 Oxygen Delivery Method Room Air Positive alert and oriented x3 HEENT Reports normocephalic and moist mucous membranes normocephalic Mouth ED: Yes moist mucous membranes normal Eyes PERRL and EOMs intact bilaterally General Eye ED: Yes normal appearance of both eyes Pupil: PERRL Neck supple and no JVD Lymph Lymphatic: no lymphadenopathy noted Chest Wall inspection of chest normal and palpation of chest normal Resp normal respiratory effort and normal air movement Cardio regular rate and regular rhythm Peripheral Pulses: pulses 2+ throughout GI soft to palpation, non-tender, non-distended and no masses Back/Spine no CVA tenderness and normal to inspection Back/Spine Narrative: Patient points to her right lower back as the area of pain however is not reproducible on exam. No midline tenderness. No step-off sign. 2+ bilateral DP pulses. General Back: Negative for CVA tenderness Cervical Spine: Negative for cervical spine tenderness and Negative for paracervical muscle tenderness Lumbar Spine / Lower Back: straight leg raise negative bilaterally Extremity normal to inspection and full ROM Neuro oriented x3, moves all extremities and no focal motor deficits Psych mental status grossly normal and thought process normal Skin no rashes or lesions noted and no petechiae MDM MDM MDM Narrative Medical decision making narrative: Patient evaluated for left lower back pain. It started after she was golfing yesterday. She is not have any midline tenderness. She is not having neurologic symptoms. She does not have any symptoms consistent with cauda equina syndrome. Patient is given Tylenol in the ER. Urine is negative. Urinalysis is not consistent with UTI. Patient does have some slight contamination and red blood cells however I do not think this is kidney stone. Patient be treated symptomatically with Tylenol and ibuprofen [id number]. Lab Data Labs: Laboratory Results - last 24 hr 07/07/20 07/07/20 16:26 16:26 Urine Color Yellow Urine Clarity Sl. Cloudy Urine pH 5.0 Ur Specific [place] 1.025 Urine Protein 15 H Urine Glucose (UA) Normal Urine Ketones 5 H Urine Occult Blood 10 H Urine Nitrite Negative Urine Bilirubin Negative Urine Urobilinogen Normal Ur Leukocyte Esterase Negative Urine RBC 0-5 SEEN Urine WBC 0 SEEN Ur Squamous Epith Cells 0-5 SEEN Urine Bacteria 0 SEEN Urine Mucus 1+ Urine Test Negative Treatment and Re-Evaluation Comments:: Tylenol, DC home Discharge Plan Triage Chief Complaint: Back ED Provider: Michelle Odonnell Dx/Rx/DC Orders Instructions: ED Back Sprain/Strain Prescriptions: No Action PNV cmb#95-ferrous fumarate-FA 1 EACH tablet 1 ea PO DAILY RF: 0 sennosides-docusate sodium 1 TABLET tablet 1 - 2 tab PO DAILY PRN (Reason: Constipation) Qty: 60 RF: 0 ibuprofen 600 MG tablet 600 mg PO TID PRN (Reason: pain) Qty: 30 RF: 0 Primary Care Provider: Fan Moser Referrals: Fan Moser MD [Primary Care Provider] - Activity Restrictions/Additional Instructions: Alternate Tylenol ibuprofen for pain. I do not think you have a bladder infection. Urine is negative. Likely you pulled a muscle in your back while golfing yesterday. Disposition Disposition: Home, self care Discharge Date/Time: 07/07/20 17:41
[2020-07-07] MEDS: Acetaminophen 500 MG Tablet 1000 MG PO (16:14)
[2020-07-07 16:32] LABS: Bacteria 0 SEEN /hpf (None Seen); White Blood Cells 0 SEEN /hpf (0-5)
[2020-07-07 16:36] LABS: Color, Urine Yellow (Yellow); Glucose, Dipstick Normal (Normal); Ketone-Dipstick 5 mg/dl (Negative); Leukocyte Esterase-Dipstick Negative /ul (Negative); Nitrite-Dipstick Negative (Negative); Occult Blood-Urine 10 /ul (Negative); Protein-Dipstick 15 mg/dl (Negative); Specific Gravity, Urine 1.025 (1.002-1.030); Urine Bilirubin Dipstick Negative (Negative); Urine Clarity Sl. Cloudy (Clear); Urine Urobilinogen Normal (Normal)
[2020-07-07 16:40] LABS: Internal QC Validated? YES +Cl - CLEAR BKGD; Pregnancy, Urine Negative Negative
[2020-07-07 16:51] LABS: Mucous, Urine 1+ /hpf (<or=2+); Red Blood Cells-Urine 0-5 SEEN /hpf (0-5); Squamous Epithelial Cells - UA 0-5 SEEN /hpf (5-10)
== END 2020-07-07 17:41 | disposition home or self-care (01) ==
PROVIDERS: Emergency Provider Emergency Medicine; PCP Family Medicine
DX: M54.5 Low back pain (principal)
CPT/HCPCS: 81001; 81025; 99282

== ENCOUNTER → 2021-01-27 13:29 | Outpatient (CLI) | payer OTHER, SELFPAY ==
[2021-01-27 15:19] LABS: Glucose, Dipstick Normal (Normal); Ketone-Dipstick 5 mg/dl (Negative); Leukocyte Esterase-Dipstick 25 /ul (Negative); Nitrite-Dipstick Negative (Negative); Occult Blood-Urine 10 /ul (Negative); Protein-Dipstick 30 mg/dl (Negative); Specific Gravity, Urine 1.025 (1.002-1.030); Urine Bilirubin Dipstick Negative (Negative); Urine Urobilinogen Normal (Normal)
[2021-01-27 15:23] LABS: Color, Urine Yellow (Yellow); Urine Clarity Cloudy (Clear)
[2021-01-27 15:25] LABS: Amphetamine Urine VISTA NEGATIVE (<1000 ng/mL); Barbiturate Urine VISTA NEGATIVE (< 200 ng/mL); Benzodiazepine Urine VISTA NEGATIVE (< 200 ng/mL); Cocaine Urine VISTA NEGATIVE (< 300 ng/mL); Ecstacy Urine VISTA NEGATIVE (< 500 ng/mL); Methadone Urine VISTA NEGATIVE (< 300 ng/mL); PCP Urine VISTA NEGATIVE (< 25 ng/mL); THC Urine VISTA NEGATIVE (< 50 ng/mL); Vista UDS pH Range 5
[2021-01-29 21:07] LABS: Chlamydia By Nucleic Acid AMP Negative (Negative)
[2021-01-29 21:46] LABS: Gonococcus By Nucleic Acid AMP Negative (Negative)
== END ==
PROVIDERS: PCP Family Medicine; Visit Provider Obstetrics & Gynecology
DX: Z34.81 Encounter for supervision of other normal pregnancy, first trimester (principal); Z11.3 Encounter for screening for infections with a predominantly sexual mode of transmission
CPT/HCPCS: 80307; 81002; 87086; 87088; 87491; 87591

== ENCOUNTER → 2021-02-23 15:54 | Outpatient (CLI) | payer OTHER, SELFPAY ==
[2021-02-23 17:06] LABS: Absolute Lymphocyte Count 1.37 X10^3/uL (0.83-4.51); Absolute Neutrophil Count 2.6 X10^3/uL (2.0-7.7); Basophil# 0.02 X10^3/uL; Basophil% 0.4 % (0-1); Eosinophil# 0.06 X10^3/uL; Eosinophils% 1.3 % (0-5); Hematocrit 38.3 % (37-47); Hemoglobin 12.3 g/dL (12.0-15.0); Lymphocyte # 1.37 X10^3/ul (0.83-4.51); Lymphocyte % 30.2 % (19-41); Mean Corp Hgb Conc 32.1 g/dL (32-36); Mean Corpuscular Hgb 25.2 pg (27.0-32.0); Mean Corpuscular Volume 78.5 fL (81-99); Mean Platelet Vol. 9.6 fl (6.2-12.0); Monocyte# 0.43 X10^3/uL; Monocyte% 9.5 % (0-10); NRBC Flagged by Analyzer 0 % (0-5); Neutrophil # 2.63 X10^3/uL (2.7-7.7); Neutrophil % 58.2 % (47-70); Platelet Count 236 K/mm3 (150-450); RBC Distribution Width SD 45.1 fl (35.1-43.9); Red Blood Count 4.88 M/mm3 (4.2-5.4); White Blood Count 4.5 K/mm3 (4.4-11.0)
[2021-02-24 09:53] LABS: Ferritin 44 ng/mL (8-252)
[2021-02-24 11:32] LABS: HIV - WCH Non-Reactive (Nonreactive); Hepatitis B Surface Antigen Non-Reactive (Nonreactive); Hepatitis C Antibody Non-Reactive (Nonreactive); Rubella IgG Reactive (Nonreactive); Syphilis Antibodies Non-reactive
== END ==
PROVIDERS: PCP Family Medicine; Visit Provider Obstetrics & Gynecology
DX: Z34.81 Encounter for supervision of other normal pregnancy, first trimester (principal)
CPT/HCPCS: 36415; 82728; 84443; 85025; 86703; 86762; 86780; 86803; 87340

== ENCOUNTER 2021-03-26 10:20 | Outpatient (CLI) | payer OTHER, SELFPAY ==
[2021-03-26 11:40] LABS: Glucose Challenge Gest 1H 50g 151 mg/dL (70-140)
== END 2021-03-26 23:59 | disposition short-term general hospital (02) ==
LOC: WOBLAB 10:21
PROVIDERS: PCP Family Medicine; Visit Provider Obstetrics & Gynecology
DX: Z34.82 Encounter for supervision of other normal pregnancy, second trimester (principal)
CPT/HCPCS: 36415; 82950

== ENCOUNTER 2021-04-30 13:26 | Outpatient (CLI) | payer OTHER, SELFPAY ==
[2021-04-30 13:29] LABS: Bacteria 0 SEEN /hpf (None Seen); Mucous, Urine 0 SEEN /hpf (<or=2+); Red Blood Cells-Urine 0 SEEN /hpf (0-5)
[2021-04-30 13:45] LABS: Color, Urine Yellow (Yellow); Glucose, Dipstick Normal (Normal); Ketone-Dipstick 5 mg/dl (Negative); Leukocyte Esterase-Dipstick 25 /ul (Negative); Nitrite-Dipstick Positive (Negative); Occult Blood-Urine 10 /ul (Negative); Protein-Dipstick 100 mg/dl (Negative); Urine Bilirubin Dipstick 1 mg/dL (Negative); Urine Clarity Cloudy (Clear); Urine Urobilinogen 1 mg/dl (Normal)
[2021-04-30 14:00] LABS: Amorphous Sediment 1+; Squamous Epithelial Cells - UA 10-25 SEEN /hpf (5-10); White Blood Cells 0-5 SEEN /hpf (0-5)
== END 2021-04-30 23:59 | disposition home or self-care (01) ==
LOC: LABSPEC 13:27
PROVIDERS: PCP Family Medicine; Visit Provider Obstetrics & Gynecology
DX: Z34.82 Encounter for supervision of other normal pregnancy, second trimester (principal)
CPT/HCPCS: 81001

== ENCOUNTER → 2021-06-18 | Outpatient (CLI) | payer OTHER, SELFPAY ==
[2021-06-18 10:42] LABS: Hematocrit 35.3 % (37-47); Hemoglobin 11.3 g/dL (12.0-15.0); Mean Corpuscular Hgb 24.8 pg (27.0-32.0); Mean Corpuscular Volume 77.4 fL (81-99); Mean Platelet Vol. 9.5 fl (6.2-12.0); Platelet Count 241 K/mm3 (150-450); RBC Distribution Width CV 14.3 % (11.6-14.6); RBC Distribution Width SD 39.8 fl (35.1-43.9); Red Blood Count 4.56 M/mm3 (4.2-5.4); White Blood Count 9.7 K/mm3 (4.4-11.0)
== END | disposition home or self-care (01) ==
LOC: WOBLAB 10:30
PROVIDERS: PCP Family Medicine; Visit Provider Obstetrics & Gynecology
DX: Z34.82 Encounter for supervision of other normal pregnancy, second trimester (principal)
CPT/HCPCS: 36415; 85027

== ENCOUNTER → 2021-09-01 | Outpatient (CLI) | payer OTHER, SELFPAY | END | disposition home or self-care (01) | LOC: LABSPEC 13:00 | PROVIDERS: PCP Family Medicine; Visit Provider Obstetrics & Gynecology | DX: Z36.85 Encounter for antenatal screening for Streptococcus B (principal) | CPT/HCPCS: 87081 ==

== ENCOUNTER 2021-09-09 04:50 | Inpatient (IN) | payer OTHER, MEDICAID, SELFPAY ==
[2021-09-09] VITALS (15 sets, daily range): BP systolic 97–136; BP diastolic 45–80; PULSE 71–110; RESP 13–26; TEMP 36.2–36.7; O2SAT 96–100; BMI 56.4
[2021-09-09] MEDS: Lactated Ringers 1,000 ML 999 ML IV (05:15)
[2021-09-09] MEDS: Acetaminophen 500 MG Tablet 1000 MG PO ×3 (05:26→20:24)
[2021-09-09 05:36] LABS: Absolute Lymphocyte Count 1.42 X10^3/uL (0.83-4.51); Absolute Neutrophil Count 5.2 X10^3/uL (2.0-7.7); Basophil# 0.01 X10^3/uL; Basophil% 0.1 % (0-1); Eosinophil# 0.04 X10^3/uL; Eosinophils% 0.6 % (0-5); Hematocrit 36.8 % (37-47); Hemoglobin 11.8 g/dL (12.0-15.0); Lymphocyte # 1.42 X10^3/ul (0.83-4.51); Lymphocyte % 20.2 % (19-41); Mean Corp Hgb Conc 32.1 g/dL (32-36); Mean Corpuscular Hgb 26.6 pg (27.0-32.0); Mean Corpuscular Volume 83.1 fL (81-99); Mean Platelet Vol. 10.7 fl (6.2-12.0); Monocyte# 0.34 X10^3/uL; Monocyte% 4.8 % (0-10); NRBC Flagged by Analyzer 0 % (0-5); Neutrophil # 5.19 X10^3/uL (2.7-7.7); Neutrophil % 73.7 % (47-70); Platelet Count 177 K/mm3 (150-450); RBC Distribution Width CV 16.2 % (11.6-14.6); RBC Distribution Width SD 49.3 fl (35.1-43.9); Red Blood Count 4.43 M/mm3 (4.2-5.4)
[2021-09-09] MEDS: Lactated Ringers 1,000 ML 150 ML IV ×2 (06:25→13:11)
[2021-09-09] MEDS: Sodium Citrate/Citric Acid 30 ML UDC PO (07:23)
--- NOTE | 2021-09-09 07:33 | PCM.HP.OB ---
HPI - General General Date of Admission: 09/09/21 Date of Service: 09/09/21 Chief Complaint: scheduled HPI Narrative SOILA FORREST, is a 25 F who presents at 39 weeks gestation (BUDDY 09/16/21) for scheduled repeat section. issues: -Maternal obesity, BMI >40 -Elevated EPDS, hx anxiety, depression -UTI at 20wga [facility] Medical History (Updated 09/09/21 @ 07:[address] Kay Bolivar MD) Adopted Anxiety Gestational diabetes mellitus Leukemia depression Home Medications vit no.95-ferrous fumarate 28 mg-folic acid 800 mcg tablet 1 ea PO DAILY Check with primary doctor 08/28/19 [History Last Taken 08/27/19] Allergy/AdvReac Type Severity Reaction Status Date / Time No Known Allergies Allergy Verified 09/09/21 05:24 Surgical History Hx of breast reduction, elective Previous section Social History Smoking Status: Never smoker History 3 Elective abortions Hx Para 2 Spontaneous abortions Hx # Term Pregnancies Ectopic pregnancies Hx # Pregnancies Multiple births # of living children 2 Past Pregnancies Del. Date Name GA/Weeks Outcome Route Bth Weight Gen Labor Lgth Anesthesia Del Locatn Provider FOB 05/06/14 Reagan 39 live - full term 8lb 3oz Male 12 epidural Mary Deshpande 08/28/19 Isai 39 live - full term 9lb3oz Male spinal [place] Mansi Deshpande Delivery Date: 05/06/14 Last Updated by: Kay Bolivar MD IOL, arrest of dilation Delivery Date: 08/28/19 Last Updated by: Kay Bolivar MD Anesthesiology: Fernandez Staton; depression NST FHR Rate Baby A Baseline: 155 Variability:: Moderate Accelerations:: 15 x 15 Decelerations:: None NST Reactive:: Yes FHR Category:: Category I Uterine Activity:: 03/08 Vital Signs Vital Signs Vital Signs: 09/09/21 05:32 Temperature 97.1 F L Temperature Source Temporal Pulse Rate 110 H Respiratory Rate 16 Blood Pressure 136/67 H Blood Pressure Mean 90 Blood Pressure Source Monitor Blood Pressure Position Semi-Fowlers Blood Pressure Location Left Arm Pulse Ox 98 Oxygen Delivery Method Room Air Weight Weight: 131.088 kg Body Mass Index (BMI) 56.4 Physical Exam Const alert, oriented x3 and no apparent distress HEENT normocephalic Resp normal respiratory effort, normal air movement and clear to auscultation bilaterally Cardio regular rate and regular rhythm GI soft to palpation, non-tender and non-distended Inspection: gravid Extremity no calf tenderness Labs Labs Labs: Blood Type A POSITIVE Antibody Screen NEGATIVE Hct 36.8 % (37-47) L Hgb 11.8 g/dL (12.0-15.0) L Syphilis Total Ab Non-reactive VZV IgG Antibody 232 index (Immune >165) Rubella IgG Antibody Reactive (Nonreactive) Hep Bs Antigen Non-Reactive (Nonreactive) Chlamydia DNA (BUCK) Negative (Negative) Neisseria gonorrhoeae DNA (BUCK) Negative (Negative) HIV 1&2 Antibody Non-Reactive (Nonreactive) Glucose 1 Hr 50 gm 151 mg/dL (70-140) H Rhogam given: No Declined 3h GTT due to intolerance. Home blood glucose monitoring for 1-2 weeks x 2 both normal. Assessment & Plan (1) 39 weeks gestation of : PLAN: Proceed as planned with repeat section
--- NOTE | 2021-09-09 13:12 | NURSING ---
Surgery delayed due to OR availability.
--- NOTE | 2021-09-09 13:26 | NURSING ---
Patient requests Tylenol for a headache. Order received for 1,000mg Tylenol po x1 from Dr. Burkett. Will obtain VS shortly.
[2021-09-09] MEDS: Ketorolac 30 MG/ML Syringe IV ×2 (15:45→22:22)
--- NOTE | 2021-09-09 16:19 | OP.PCM_ITS ---
Assessment & Plan (1) 39 weeks gestation of : (2) delivery delivered: Details Operative Information Date of Procedure: 09/09/21 Pre-Operative Diagnosis: 1. 39 weeks gestation 2. Previous section x 2 Post-Operative Diagnosis: 1. 39 weeks gestation 2. Previous section x 2 Indications for : Repeat Elective Classification: Scheduled Procedure Type: low transverse shoe repairer apprentice #1: Cynthia Cruz Type of Anesthesia: Spinal Anesthesiologist: Fernandez Staton Antibiotic Given: Ancef 3 grams IV x1 Drain: Rivera to straight drain Estimated Blood Loss: 600 ml Fluids Replaced: 1500 ml Findings Description of Procedure: The patient was taken to the operating room and spinal analgesia was administered. She is placed in a dorsal supine position and Rivera catheter placed. The perineum and abdomen were prepped and draped in sterile fashion. The spinal was found to be adequate. A Pfannenstiel incision was made using a scalpel and brought down to incise the subcutaneous tissue and rectus fascia at the midline. Subcutaneous tissue was bluntly dissected off the fascia laterall y. The fascial incision was dissected laterally and cephalad using curved Sauceda scissors. The superior leaflet of the rectus fascia was grasped using Margarette clamps and bluntly dissected and sharply dissected from the underlying rectus muscle. In a similar fashion the inferior rectus fascia was dissected from the underlying muscle. The rectus muscles were bluntly at the midline. The peritoneum was identified and entered [sharply]. The Michael O retractor was introduced abdominally. The bladder blade was placed into the abdomen and the vesicouterine peritoneal fold identified. The fold was incised and a bladder flap created. Bladder blade was then repositioned to the abdomen. A low transverse hysterotomy was made using the [Metzenbaum scissors] to level of the membranes with clear fluid. The hysterotomy was extended bluntly cephalad and caudad. The head was elevated and brought to the level of the hysterotomy and the delivered revealing vigorous [male] infant. The cord was doubly clamped and cut after 30 seconds. The was passed to awaiting [nursery personnel]. The placenta was [expressed] from the uterus and appeared intact on inspection. The uterus was exteriorized and cleared of debris. The hysterotomy was then repaired using 0 Vicryl running lock suture. A second imbricating layer was also placed for additional hemostasis. The bladder blade was removed. The uterus and adnexa were returned to the abdomen and Melissa placed over the hysterotomy including a denuded area of uterine serosa. The anterior cul-de-sac was cleared of debris. The peritoneum and rectus muscles were reapproximated using 2-0 Vicryl running suture. The rectus fascia was closed using 0 strata fix running suture. The patient complained of significant pain and discomfort. An iliohypogastric block was placed bilaterally along with subcutaneous infiltration of 2% lidocaine (10 mL of 2% lidocaine diluted in 10 mL of saline). The subcutaneous tissue was reapproximated using 2-0 Vicryl. The skin was closed using 4-0 Monocryl subcuticularly by the GAS METER CHECKER under my supervision. A Mepilex occlusive dressing was placed over the incision. The fundus was firm. The patient was then transferred to the recovery room without complication. Sponge, instrument, and needle counts were correct ?2. Presentation: Positive for Vertex Amniotic Membrane Rupture Type: Artificial Amniotic Fluid Description: Clear Placental Delivery Description: Expressed Placenta Disposition: [facility] Cord Vessel Description: 3 Vessels Cord Entanglement: Around neck x 1, loose Nuchal Cord Compression: Without compression Infant A Gender: Male (1 minute): 8 (5 minute): 9 Delayed Cord Clamping: Yes Complications Risks of Surgery Discussed w/Patient: Bleeding, Anesthesia Risks, Infection and Injury to surrounding structure(s) including bowel and bladder
[2021-09-09] MEDS: Oxytocin 30 units/NS 500 ml 30 UNITS/500 ML IV.SOLN 167 UNITS IV (16:22)
[2021-09-09] MEDS: HYDROmorphone 1 MG/ML Syringe IV ×2 (16:50→18:08)
[2021-09-09] MEDS: LACTATED RINGERS 500 ML 999 ML IV ×2 (18:55→22:15)
[2021-09-09] MEDS: Lactated Ringers 1,000 ML 100 ML IV (19:30)
[2021-09-09] MEDS: oxyCODONE 5 MG Tablet PO (21:48)
[2021-09-09] MEDS: Heparin Injection (Vial) 5,000 UNIT/ML VIAL 5000 UNIT SC (22:55)
[2021-09-09] MEDS: Cefazolin 1 GM/50 ML BAG IV (23:08)
[2021-09-10] MEDS: HYDROmorphone 1 MG/ML Syringe IV (00:52)
[2021-09-10 00:56] VITALS: BP 121/70; PULSE 77; RESP 26
[2021-09-10] MEDS: oxyCODONE 5 MG Tablet PO ×5 (02:38→20:39)
[2021-09-10] MEDS: Acetaminophen 500 MG Tablet 1000 MG PO ×4 (02:39→20:39)
[2021-09-10 03:33] VITALS: BP 102/55; PULSE 70; RESP 24
[2021-09-10] MEDS: Ketorolac 30 MG/ML Syringe IV ×2 (04:32→10:05)
[2021-09-10] MEDS: Cefazolin 1 GM/50 ML BAG IV (06:22)
[2021-09-10 06:38] LABS: Hematocrit 31.2 % (37-47); Hemoglobin 9.9 g/dL (12.0-15.0); Mean Corp Hgb Conc 31.7 g/dL (32-36); Mean Corpuscular Hgb 27.1 pg (27.0-32.0); Mean Corpuscular Volume 85.5 fL (81-99); Mean Platelet Vol. 10.4 fl (6.2-12.0); Platelet Count 134 K/mm3 (150-450); RBC Distribution Width CV 16.4 % (11.6-14.6); RBC Distribution Width SD 51.6 fl (35.1-43.9); Red Blood Count 3.65 M/mm3 (4.2-5.4); White Blood Count 6.9 K/mm3 (4.4-11.0)
[2021-09-10] MEDS: Heparin Injection (Vial) 5,000 UNIT/ML VIAL 5000 UNIT SC ×3 (06:41→23:01)
--- NOTE | 2021-09-10 06:47 | PCM.PN.OB ---
Subjective Subjective Patient without complaints. Tolerating diet well. Positive flatus. Trying to breast-feed. Objective Data Objective Data Vital Signs: Vital Signs Temp Pulse Resp BP Pulse Ox O2 Del Method 97.4 F L 70 24 H 102/55 L 97 Room Air 09/09/21 19:41 09/10/21 03:33 09/10/21 03:33 09/10/21 03:33 09/09/21 20:26 09/10/21 03:33 Oxygen Delivery Method Room Air Weight: 289 lb Body Mass Index (BMI) 56.4 Intake & Output: Intake and Output for Last 24 Hours 09/08/21 09/09/21 09/10/21 23:59 23:59 23:59 Intake Total 4110 / 4110 550 / 550 Output Total 250 / 250 700 / 700 Balance 3860 / 3860 -150 / -150 Lab / Micro Data Result Diagrams: 09/10/21 06:25 Labs: Laboratory Results - last 24 hr 09/10/21 06:25: WBC 6.9, RBC 3.65 L, Hgb 9.9 L, Hct 31.2 L, MCV 85.5, MCH 27.1, MCHC 31.7 L, RDW Std Deviation 51.6 H, RDW Coeff of Ximena 16.4 H, Plt Count 134 L, MPV 10.4 Micro: Microbiology 09/09/21 05:15 Nasal Secretion SARS-CoV-2 Antigen (Rapid) - Final Assessment & Plan (1) delivery delivered: PLAN: Doing well postoperative day #1 status post repeat section. Continuing present care.
[2021-09-10 08:39] VITALS: BP 101/61; PULSE 89; RESP 20; TEMP 36.3; O2SAT 97
[2021-09-10] MEDS: Senna/Docusate Sodium 1 Tablet PO (10:05)
[2021-09-10] MEDS: Prenatal Vits Tablet 1 TABLET PO (10:05)
[2021-09-10] MEDS: 0.9% Saline Lock 10 ML Syringe IV (10:05)
[2021-09-10 11:59] VITALS: BP 101/61; PULSE 81; RESP 18; TEMP 36.5; O2SAT 97
[2021-09-10] MEDS: Ibuprofen 600 MG Tablet PO (16:04)
[2021-09-10 16:08] VITALS: BP 122/66; PULSE 89; RESP 20; TEMP 36.3; O2SAT 99
--- NOTE | 2021-09-10 16:18 | NURSING ---
1618-mom up talking to baby at side of crib, dressed baby and did feed baby this last feed.
[2021-09-10 20:00] VITALS: BP 110/56; PULSE 99; RESP 17; TEMP 36.3; O2SAT 98
--- NOTE | 2021-09-10 20:25 | CM.ED ---
SW Note Referral Source: email designer Reason: History of depression, since delivery the MOB has not had any contact with the nb because it is too painful. FOB has been caring for the nb. SW spoke to RN Harman. Tab said that she spoke to the FOB and he said that this is how he and the MOB function as he cares for the nb in the hospital so she can recover and then at home she cares for the nb. PHQ2 score was 0 Mom: Bethanie PNC: Mansi Bolivar Control: Pill Baby: Jagruti Pantoja : 09/09/[birth year] Weight: 9lbs Apgars: 8/9 Housecleaner: Price RETANA said that she is giving the nb formula while in the hospital as her milk has not come in yet. MOB does plan to pump. MOB's other children are 7 year old son and 2 year old son Housing: FOB and MOB reside in a house with their 3 children in [facility]. Transportation: MOB reports that she has access to transportation. She reports she is able to drive. Supplies: MOB reports that she has all the nb supplies including bassinet, crib, carseat, clothes and diapers. Supports: MOB said that her support is her and her sister who resides in [place]. Education Level: MOB said that she graduated high school. MOB said that she had an IEP in school as she needed hands on learning. 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 Agency Involvement: MOB reports no JFS, WIC, HMG, Counseling, legal or CSB involvement. MOB and FOB were open to WIC referral. SARABJIT: Jeramy Time together: 9 years Involved with the nb:Yes Employment: [employer]. He will be taking FMLA for 1 month off work. 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 MOB said that she is tired and with more anxiety. MOB said that she has social anxiety. Patient said that she has tried Zoloft in the past but she felt it made me worse. MOB denied any SI/HI in the past or currently. ROSY spent extensive amount of time with MOB educating them post depression and to contact the MD for assistance if symptoms of tearfulness last for 4-5 days or MOB is unable to get out of bed. SW discussed that other medication may be more effective than Zoloft for patient. MOB feels support from her OB. MOB and FOB were educated on Shaken Baby, PPD and Safe Sleeping MOB reports no alcohol, drug or tobacco use. Plan: NB was observed in the bassinet during the interaction with MOB and FOB. MOB did appear to be in pain during the assessment. As the assessment continued MOB became more reactive and smiled and interacted with the FOB. Family is agreeable to [facility] referral and SW made the on line referral. ROSY spoke to Harman RN at 8:30pm and Tab said that MOB is caring for the nb and feeding the nb. Plan: Home at discharge. Marycarmen BENDER
[2021-09-11] MEDS: Ibuprofen 600 MG Tablet PO ×3 (00:25→13:02)
[2021-09-11 02:24] VITALS: BP 106/53; PULSE 84; RESP 18; TEMP 36.3; O2SAT 97
[2021-09-11] MEDS: oxyCODONE 5 MG Tablet PO ×3 (02:56→13:23)
[2021-09-11] MEDS: Acetaminophen 500 MG Tablet 1000 MG PO ×2 (02:56→09:30)
[2021-09-11] MEDS: Heparin Injection (Vial) 5,000 UNIT/ML VIAL 5000 UNIT SC (06:37)
[2021-09-11 07:50] VITALS: BP 91/50; PULSE 90; RESP 18; TEMP 36.6; O2SAT 98
[2021-09-11] MEDS: Senna/Docusate Sodium 1 Tablet PO (09:30)
--- NOTE | 2021-09-11 11:33 | PCM.PN.OB ---
Subjective Subjective Patient without complaints. Pumping. Minimal vaginal bleeding reported. Positive flatus and tolerating diet well. Wants to go home today. Objective Data Objective Data Vital Signs: Vital Signs Temp Pulse Resp BP Pulse Ox O2 Del Method 97.8 F 90 18 91/50 L 98 Room Air 09/11/21 07:50 09/11/21 07:50 09/11/21 07:50 09/11/21 07:50 09/11/21 07:50 09/11/21 07:50 Oxygen Delivery Method Room Air Weight: 289 lb Body Mass Index (BMI) 56.4 Intake & Output: Intake and Output for Last 24 Hours 09/09/21 09/10/21 09/11/21 23:59 23:59 23:59 Intake Total 4110 / 4110 1550 / 1550 Output Total 250 / 250 850 / 850 Balance 3860 / 3860 700 / 700 Lab / Micro Data Result Diagrams: 09/10/21 06:25 Micro: Microbiology 09/09/21 05:15 Nasal Secretion SARS-CoV-2 Antigen (Rapid) - Final Assessment & Plan (1) delivery delivered: PLAN: Doing well post operative day #2 status post repeat . Will discharge to home with routine instructions given.
--- NOTE | 2021-09-11 11:34 | DCINST_ITS ---
Discharge Instructions Diet Discharge Diet: No restrictions Activity May resume sexual activity in: 4-6 weeks Lifting Restrictions: 20 pounds Additional Activity Instructions:: Nothing in the vagina for 4 weeks please; no lifting more than 20-25 lbs for 6 weeks. Use Ibuprophen 800 mg orally every 8 hours as needed for pain. Can also add Tylenol 1000 mg every 8 hours if needed for pain. If Ibuprophen and Tylenol are not effective then use the Oxycodone but keep in mind it can cause serious constipation issues. Drink lots of water. Call if bleeding more than a pad per hour. Use the colace as constipation is a big issue after this type of surgery. Steps and walking are OK. Activity is encouraged but do not over do it !! Dressing / Incision Call your doctor if your incision/area has: Continuous Slow Oozing, Sudden Increased Bleeding, Increased Pain/ Swelling, Increased Redness and Foul Smelling Discharge Call your doctor if you observe: Fever of 101 or Higher, Inability to urinate, Inability to have a bowel movement and Using more than 1 pad per hour Follow Up Care Please Follow Up With: Kay Eller MD When: Call [phone] for appointment to be seen in 2 weeks. Test Results: Test results from this visit will be discussed in further detail at your follow- up appointment, if applicable. Discharge Plan Admission Admit Date/Time: 09/09/21 04:50 Primary Reason for Your Visit: Repeat Attending Provider: Kay Eller Primary Care Provider: Fan Moser Discharge Orders/Prescriptions Prescriptions: New oxycodone 5 mg capsule 5 mg PO Q6H PRN (Reason: pain (scale score 7-10)) 7 Days Qty: 10 0RF docusate sodium 100 mg tablet 100 mg PO BID PRN (Reason: constipation) Qty: 60 1RF Continued PNV cmb#95-ferrous fumarate-FA 1 EACH tablet 1 ea PO DAILY Referrals / Follow Up: Fan Moser MD [Primary Care Provider] - Disposition Disposition (needs filled in before D/C Order can be placed): Home, Self Care
[2021-09-11] MEDS: Prenatal Vits Tablet 1 TABLET PO (13:02)
[2021-09-11 13:20] VITALS: BP 123/76; PULSE 96; RESP 16; TEMP 36.7; O2SAT 98
--- NOTE | 2021-09-11 13:20 | NURSING ---
Pt pump in room and this RN encouraged pt to pump throughout the day q3hrs to stimulate breasts and bring in milk supply. Pt verbalized understanding but RN did not witness pt pumping. Pt interacting with infant minimally until discharge, then mother was holding and rocking infant in arms and placed infant in carseat for discharge. FOB caring for during day and RN visualized appropriate interaction between father and . Feeding and diaper changes done and well cared for.
--- NOTE | 2021-09-11 13:42 | NURSING ---
Follow up OB appointment made in 1 week with [facility].
== END 2021-09-11 13:30 | disposition home or self-care (01) | DRG 788 ==
PROVIDERS: Admitting Provider Obstetrics & Gynecology; PCP Family Medicine; Visit Provider Obstetrics & Gynecology
PROC: 10D00Z1 Extraction of Products of Conception, Low, Open Approach (ICD-10-PCS; CPT 59514; principal; 2021-09-09 07:15)
DX: O34.219 Maternal care for unspecified type scar from previous cesarean delivery (principal); O69.2XX0 Labor and delivery complicated by other cord entanglement, with compression, not applicable or unspecified; Z37.0 Single live birth; Z3A.39 39 weeks gestation of pregnancy
CPT/HCPCS: 85025; 85027; 86850; 86900; 86901; 87426; 99218; J7120; A4216; G0378; J2405; J3490

== ENCOUNTER → 2022-01-11 | Outpatient (CLI) | payer OTHER, MEDICAID, SELFPAY ==
[2022-01-11 17:37] LABS: Hematocrit 38.5 % (37-47); Hemoglobin 12.6 g/dL (12.0-15.0); Mean Corp Hgb Conc 32.7 g/dL (32-36); Mean Corpuscular Volume 79.5 fL (81-99); Mean Platelet Vol. 9.5 fl (6.2-12.0); Platelet Count 306 K/mm3 (150-450); RBC Distribution Width CV 13.4 % (11.6-14.6); RBC Distribution Width SD 38.8 fl (35.1-43.9); Red Blood Count 4.84 M/mm3 (4.2-5.4); White Blood Count 8.1 K/mm3 (4.4-11.0)
[2022-01-11 17:50] LABS: D-Dimer Quantitative (DVT/PE) 0.41 FEU/ug/m (0.27-0.49)
[2022-01-11 18:05] LABS: AST(SGOT) 18 U/L (15-37); Alanine Aminotransfer ALT/SGPT 33 U/L (13-56); Albumin, Serum 3.7 g/dL (3.2-5.0); Alkaline Phosphatase 115 U/L (45-117); Anion Gap 9 (5-15); BUN 14 mg/dL (7-18); BUN/Creat Ratio 15.8 RATIO (10-20); Calcium,Total 8.8 mg/dL (8.5-10.1); Chloride 105 mmol/L (98-107); Creatinine, Serum 0.88 mg/dL (0.55-1.02); EST Glomerular Filtration Rate 81 mL/min (>60); Est Glom Filt Rate - Afr Amer 98 mL/min (>60); Globulin 3.8 g/dL (2.2-4.2); Glucose 84 mg/dL (74-106); Magnesium 2.4 mg/dL (1.6-2.6); Potassium 3.8 mmol/L (3.5-5.1); Protein, Total 7.5 g/dL (6.4-8.2); Sodium Level 137 mmol/L (136-145); Thyroid Stim Hormone (TSH) 0.98 uIU/mL (0.358-3.74)
== END | disposition home or self-care (01) ==
LOC: MTLAB 16:21
PROVIDERS: PCP Family Medicine; Referring Provider Nurse Practitioner Family; Visit Provider Nurse Practitioner Family
DX: R00.2 Palpitations (principal)
CPT/HCPCS: 36415; 80053; 83735; 84443; 85027; 85379